=== PATIENT | female | born 1955 | race Caucasian/White ===

== ENCOUNTER → 2019-05-23 10:08 | Outpatient (CLI) | payer BC ==
--- NOTE | ~2019-05-23 | ST ---
PATIENT:RADHA ARRIAGA MEDICAL RECORD: [id number] SEX: F LOCATION:[facility] ORDER #: ADMISSION DATE: 05/23/19 AGE OF PATIENT: 64 REFERRING PHYSICIAN: INTERPRETING PHYSICIAN: HELENE KELLEY MD DATE OF SERVICE: 05/23/2019 INDICATION: Angina, abnormal ECG, preoperative evaluation of shortness of breath. The patient was exercised on standard Lexiscan protocol with 33 mCi of sestamibi injected at peak stress, 11 mCi used previously for rest images. FINDINGS: Gated SPECT reveals preserved ejection fraction at 62% with good wall motioning and thickening and brightening throughout all segments. SPECT imaging: Cardiolite was used for myocardial perfusion agent. There are large areas of reversible ischemia anteriorly as well as laterally. The degree of reversibility is moderate to severe. The amount of myocardium involved is large. OVERALL IMPRESSION: This is a high risk abnormal nuclear stress test, large areas of reversible ischemia laterally as well as anteriorly suggestive of hemodynamically significant multivessel coronary artery disease. TRANSINT:[id number] Voice Confirmation ID: [id number] DOCUMENT ID: [id number] HELENE KELLEY MD CC: [id number] DICTATION DATE: 05/24/19920 AUTOMATIC SPINNING LATHE OPERATOR: 05/25/19625 DEP CLI 05/23/19 [facility] [address] [id number]
== END | disposition home or self-care (01) ==
LOC: D.HCCARDIO 10:08
PROVIDERS: ATTEND Internal Medicine Interventional Cardiology
DX: Z01.810 Encounter for preprocedural cardiovascular examination (principal)

== ENCOUNTER 2019-06-06 08:38 | Outpatient (CLI) | payer BC ==
[~2019-06-06] VITALS: Ht 160 cm; Wt 66.9 kg
[2019-06-06] MEDS ORDERED: ZIAC 5-6.25 MG1 TAB PO (09:36)
[2019-06-06 09:51] VITALS: BP 148/74; BMI 26.1
[2019-06-06 10:04] VITALS: BP 148/74; Ht 160 cm; Wt 66.9 kg
--- NOTE | 2019-06-06 11:59 | NUR ---
RIGHT GROIN DRESSING C/D/I. NO S/S OF HEMATOMA NOTED. CALL LIGHT WITHIN REACH. VSS AT THIS TIME. NO FAMILY AT BEDSIDE.
--- NOTE | 2019-06-06 12:15 | NUR ---
PT RESTING COMFORTABLY. RIGHT GROIN DRESSING C/D/I. NO S/S OF HEMATOMA NOTED. CALL LIGHT WITHIN REACH. NO NEEDS AT THIS TIME.
--- NOTE | 2019-06-06 12:45 | NUR ---
RIGHT GROIN DRESSING C/D/I. NO S/S OF HEMATOMA NOTED. CALL LIGHT WITHIN REACH. FAMILY AT BEDSIDE. UPDATED ON PT'S STATUS. NO NEEDS AT THIS TIME. PT RESTING COMFORTABLY.
--- NOTE | 2019-06-06 13:05 | NUR ---
RIGHT GROIN DRESSING C/D/I. NO S/S OF HEMATOMA NOTED. PT'S HEAD OF BED INC TO 30 DEGREES. TOLERATED WELL. VSS. SET UP WITH SANDWICH TRAY AND DRINK. DENIES NAUSEA/PAIN AT THIS TIME.
--- NOTE | 2019-06-06 13:45 | NUR ---
PIV D/C'D WITH CATH TIP INTACT. TOLERATED WELL. VSS. RIGHT GROIN DRESSING C/D/I. NO S/S OF HEMATOMA NOTED. PT INSTRUCTED TO GET UP AND DRESSED AT THIS TIME. CALL LIGHT WITHIN REACH. NO ASSISTANCE NEEDED.
--- NOTE | 2019-06-06 13:50 | NUR ---
DISCUSSED DISCHARGE INSTRUCTIONS WITH PT AND PT'S FAMILY. THEY VOICED UNDERSTANDING.
--- NOTE | 2019-06-06 14:00 | NUR ---
PT TAKEN DOWN TO VEHICLE BY WHEELCHAIR. NO S/S OF DISTRESS NOTED. ALL BELONGINGS AND PAPERWORK IN HAND.
--- NOTE | 2019-06-08 11:26 | OP ---
PATIENT NAME: RADHA ARRIAGA MEDICAL RECORD: [id number] :55 LOCATION:[facility] ADMISSION DATE: SURGEON: HELENE KELLEY MD DATE OF OPERATION: 06/06/2019 DATE OF SERVICE: 06/06/2019 PROCEDURES: 1. Left heart catheterization. 2. Selective coronary angiography. 3. Left ventriculogram. INDICATION: Angina and abnormal nuclear stress test. PROCEDURE IN DETAIL: After informed consent was obtained and after a detailed description of risks, benefits as well as alternative therapies, the patient elected proceed with angiogram and heart catheterization. The right femoral area was prepped and draped in normal sterile fashion. Right femoral artery was cannulated via modified Seldinger technique with placement of 5-[place] sheath. All catheters exchanged through this sheath. FINDINGS: Left ventriculogram was performed in standard 30-degree CRAIG view, reveals good cardiac wall motion, ejection fraction estimated at 60%. SELECTIVE CORONARY ANGIOGRAPHY: Left main, left anterior descending, left circumflex, right coronary artery are all smooth-walled vessels with no angiographic evidence of coronary artery disease. OVERALL IMPRESSION: 1. No angiographic evidence of coronary artery disease. 2. Normal left heart pressures. 3. Normal left ventricular systolic function. Chest pain is noncardiac in etiology. Stress test was false positive. No other cardiac workup needs to be ascertained. TRANSINT:[id number] Voice Confirmation ID: [id number] DOCUMENT ID: [id number] HELENE KELLEY MD at 1126 CC: [id number] DICTATION DATE: 06/06/19 1145 INFORMATION TECHNOLOGY SECURITY ANALYST: 06/06/19 1437 DEP CLI 06/06/19 [place] [id number]
== END 2019-06-06 14:00 | disposition home or self-care (01) ==
LOC: D.CATH 08:38
PROVIDERS: ATTEND Internal Medicine Interventional Cardiology
DX: I20.9 Angina pectoris, unspecified (principal); R94.39 Abnormal result of other cardiovascular function study; I48.91 Unspecified atrial fibrillation